=== PATIENT | male | born 2005 | race Caucasian/White ===

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

== ENCOUNTER 2023-02-22 19:24 | Emergency (ER) | payer OTHER ==
[2023-02-22 19:33] VITALS: BP 132/85; PULSE 89; RESP 18; TEMP 98.8
[2023-02-22] MEDS ORDERED: KETOROLAC 15 MG/ML 1 ML VIAL IM STA (19:43)
--- NOTE | 2023-02-22 19:48 | ED ---
Extremity Problem HPI - General Chief complaint: Extremity Problem,Nontraumatic Stated complaint: Rt knee pain Time Seen by Provider: 02/22/23 19:38 Source: patient, family (father), RN notes reviewed Mode of arrival: ambulatory Limitations: no limitations - History of Present Illness Initial comments: Patient is an [id number] presenting to the emergency room with his father with complaints of right knee pain that is worse with movement which began suddenly approximately 2 hours ago. He reports that he was standing up and bleeds that he twisted his knee awkwardly and heard a popping sensation since that time he has had pain in his knee. He has not taken any medications to help treat his pain but reports the pain is slowly intensifying. He denies any swelling or point tenderness. He denies any range of motion impairment but does report that flexion hurts more than extension. He denies any numbness or tingling, trauma or previous injury to his knee. He has a past medical history significant for asthma and ADHD without any recent asthma flares. - Related Data Previous Rx's Medication Instructions Recorded Ibuprofen [Motrin] 800 mg PO Q8H PRN 7 Days #21 tab 02/22/23 Allergies Allergy/AdvReac Type Severity Reaction Status Date / Time No Known Allergies Allergy Verified 02/22/23 19:33 Review of Systems ROS Statement: Those systems with pertinent positive or pertinent negative responses have been documented in the HPI. ROS Other: All systems not noted in ROS Statement are negative. Past Medical History Past Medical History: Asthma Additional Past Medical History / Comment(s): adhd History of Any Multi-Drug Resistant Organisms: None Reported Past Surgical History: No Surgical Hx Reported Past Psychological History: ADD/ADHD Smoking Status: Never smoker Past Alcohol Use History: None Reported Past Drug Use History: None Reported General Exam Limitations: no limitations General appearance: alert, in no apparent distress Head exam: Present: atraumatic, normocephalic, normal inspection Eye exam: Present: normal appearance, PERRL, EOMI. Absent: scleral icterus, conjunctival injection, periorbital swelling ENT exam: Present: normal exam, mucous membranes moist Neck exam: Present: normal inspection, full ROM Respiratory exam: Absent: respiratory distress, accessory muscle use Cardiovascular Exam: Present: regular rate GI/Abdominal exam: Absent: distended Right Knee exam: Present: normal inspection, full ROM, full knee extension. Absent: tenderness (generalized pain no point tenderness), swelling, abrasion, laceration, ecchymosis, deformity, crepitus, dislocation, erythema Neurovascular tendon exam: Present: no vascular compromise Gait: observed and limited by pain Back exam: Present: normal inspection Neurological exam: Present: alert, oriented X3, CN II-XII intact Psychiatric exam: Present: normal affect, normal mood Skin exam: Present: warm, dry, intact, normal color. Absent: rash Course Vital Signs 02/22/23 19:31 Temperature 98.8 F Pulse Rate 89 Respiratory 18 Rate Blood Pressure 132/85 O2 Sat by Pulse 96 Oximetry Medical Decision Making - Medical Decision Making Was pt. sent in by a medical professional or institution (, PA, AIR CONDITIONING MANAGER, urgent care, hospital, or longterm...) When possible be specific @ -No Did you speak to anyone other than the patient for history (EMS, parent, family, police, friend...)? What history was obtained from this source @ -Yes, spoke with father at bedside regarding details of presenting illness along with past medical history. Did you review nursing and triage notes (agree or disagree)? Why? @ -I reviewed and agree with nursing and triage notes Were old charts reviewed (outside hosp., previous admission, EMS record, old EKG, old radiological studies, urgent care reports/EKG's, longterm records)? Report findings @ -No old charts were reviewed Differential Diagnosis (chest pain, altered mental status, abdominal pain women, abdominal pain men, vaginal bleeding, weakness, fever, dyspnea, syncope, headache, dizziness, GI bleed, back pain, seizure, CVA, palpatations, mental health, musculoskeletal)? @ -Differential Musculoskeletal Muscular strain, contusion, ligament sprain, fracture, arthritis, septic arthritis, bursitis, cellulitis, muscle spasm, nerve compression, DVT, arterial occlusion, herpes zoster, electrolyte abnormality, tumor.... This is not meant to be in all inclusive list EKG interpreted by me (3pts min.). @ -None done X-rays interpreted by me (1pt min.). @ -X-ray right knee: No fracture, dislocation or effusion. Good joint space maintained CT interpreted by me (1pt min.). @ -None done U/S interpreted by me (1pt. min.). @ -None done What testing was considered but not performed or refused? (CT, X-rays, U/S, labs)? Why? @ -None What meds were considered but not given or refused? Why? @ -None Did you discuss the management of the patient with other professionals (professionals i.e. , PA, AIR CONDITIONING MANAGER, lab, RT, psych nurse, social media campaign manager, commonwealth attorney, teacher, loan workout officer, egg caser)? Give summary @ -No Was smoking cessation discussed for >3mins.? @ -No Was critical care preformed (if so, how long)? @ -No Were there social determinants of health that impacted care today? How? (Homelessness, low income, unemployed, alcoholism, drug addiction, transportation, low edu. Level, literacy, decrease access to med. care, nursing home, rehab)? @ -No Was there de-escalation of care discussed even if they declined (Discuss DNR or withdrawal of care, Hospice)? DNR status @ -No What co-morbidities impacted this encounter? (DM, HTN, Smoking, COPD, CAD, Cancer, CVA, ARF, Chemo, Hep., AIDS, mental health diagnosis, sleep apnea, morbid obesity)? @ -None Was patient admitted / discharged? Hospital course, mention meds given and route, prescriptions, significant lab abnormalities, going to OR and other pertinent info. @ -17-year-old male presenting to the emergency room with complaints of sudden onset of right knee pain after standing and hearing a pop sensation without any range of motion impairment, swelling or erythema. No trauma however large body habitus with popping sensation upon standing with awkward twisting will obtain x-ray of the right knee and give Toradol for pain. No indication for any laboratory studies. Pain improved but still persisting after Toradol. Advised recommendation for anti-inflammatories for knee sprain along with conservative management. Will have nursing apply Leo wrap to help support joint. Encouraged use of ice as needed along with elevation and avoidance of high impact activities. Will give prescription for ibuprofen avoiding opiates to treat knee sprain. Advised follow-up with primary care provider. Questions and concerns answered. Return parameters to the emergency room discussed. Will discharge home in stable condition with prescription for ibuprofen 800 mg to utilize as needed for right knee pain along with conservative management of Leo wrap, elevation and ice as needed affecting follow-up with primary care provider. Undiagnosed new problem with uncertain prognosis? @ -No Drug Therapy requiring intensive monitoring for toxicity (Heparin, Nitro, Insulin, Cardizem)? @ -No Were any procedures done? @ -Leo wrap applied by nursing. Diagnosis/symptom? @ -Right knee pain Acute, or Chronic, or Acute on Chronic? @ -Acute Uncomplicated (without systemic symptoms) or Complicated (systemic symptoms)? @ -Uncomplicated Side effects of treatment? @ -No Exacerbation, Progression, or Severe Exacerbation? @ -No Poses a threat to life or bodily function? How? (Chest pain, USA, VT, pneumonia, PE, COPD, DKA, ARF, appy, cholecystitis, CVA, Diverticulitis, Homicidal, Trudy cidal, threat to staff... and all critical care pts) @ -No Case discussed with . - Radiology Data Radiology results: report reviewed, image reviewed Disposition Clinical Impression: Right knee pain Disposition: HOME SELF-CARE Condition: Stable Additional Instructions: Please utilize conservative management with R. I. C. E. Rest joint when possible, apply ice for 20 minute increments every 2-3 hours, keep compression with Leo wrap intact when possible. Elevate joint when possible. Utilize prescribed ibuprofen as needed for pain or [id number] Tylenol. Avoid high impact activities. Please follow-up with your primary care provider. Please return to the Emergency Department if symptoms worsen or any other concerns. Prescriptions: Ibuprofen [Motrin] 800 mg PO Q8H PRN 7 Days #21 tab PRN Reason: Pain Is patient prescribed a controlled substance at d/c from ED?: No Referrals: Tamiko Spann DO [Primary Care Provider] - 1-2 days
--- NOTE | 2023-02-22 20:08 | XR ---
EXAMINATION TYPE: XR knee complete RT DATE OF EXAM: 02/22/2023 CLINICAL HISTORY: pain TECHNIQUE: Three views of the right knee are obtained. COMPARISON: None. FINDINGS: There is no acute fracture/dislocation. The tri-compartment joint spaces appear within no rmal limits. The overlying soft tissue appears unremarkable. IMPRESSION: There is no acute fracture or dislocation.ICD 10 NO FRACTURE, INITIAL EVALUATION
== END 2023-02-22 20:26 | disposition home or self-care (01) ==
LOC: EC 19:24
DX: M25.561 Pain in right knee (principal); J45.909 Unspecified asthma, uncomplicated; Z86.59 Personal history of other mental and behavioral disorders
CPT/HCPCS: 73562; 99283; 96372; J1885